=== PATIENT | male | born 1940 | race Caucasian/White ===

== ENCOUNTER 2019-05-01 05:07 | Day surgery (SDC) | payer OTHER ==
[~2019-05-01 05:07] MED LIST: BAYER CHEWABLE81 MG PO; ISOSORBIDE DINI10 MG PO; LASIX40 MG PO; LIPITOR10 MG PO; LOPRESSOR25 MG PO; MYLANTA / MAALO30 ML PO; NITROQUICK0.4 MG SL; PLAVIX75 MG PO; ZANTAC150 MG PO
[2019-05-01 06:03] LABS: BASOPHILS 0.3 % (0-2); EOSINOPHILS 2.2 % (0-7); HEMATOCRIT 31.3 % (42.0-54.0); IMMATURE GRANULOCYTES 0.9 % (0-5); LYMPHOCYTES 17.1 % (15-50); MCH 30.3 pg (26.0-34.0); MCHC 31.9 g/dL (31.0-37.0); MCV 94.8 fL (80.0-100.0); MEAN PLATELET VOLUME 9.4 fL (7.4-10.4); MONOCYTES 13.7 % (2-11); NEUTROPHILS 65.8 % (40-80); RDW 15.7 % (11.5-14.5); WBC 7.8 10x3/uL (4.8-10.8)
[2019-05-01 06:19] LABS: PLATELET COUNT 317 10x3/uL (130-400)
[2019-05-01] MEDS ORDERED: NEURONTIN 300300 MG PO (06:36)
[2019-05-01] MEDS ORDERED: TUMS X-STR300 MG PO (06:36)
[2019-05-01] MEDS ORDERED: BACLOFEN10 MG PO (06:37)
[2019-05-01] MEDS ORDERED: K-TAB10 MEQ PO (06:37)
[2019-05-01] MEDS ORDERED: GLUCOPHAGE500 MG PO (06:39)
[2019-05-01] MEDS ORDERED: ULTRAM50 MG PO (06:40)
[2019-05-01] MEDS ORDERED: ALENDRONATE SOD35 MG PO (06:41)
[2019-05-01] MEDS ORDERED: NAPROXEN SODIU220 M1 PO (06:42)
[2019-05-01 06:43] VITALS: BP 143/66; BMI 19.6
--- NOTE | 2019-05-01 09:45 | NUR ---
VSS 134/70, 60, 16, 96% ON 2L MIN/NC. [facility] OFFICERS AT BEDSIDE. DRESSING TO PENIS WITH BLOOD NOTED ON GAUZE.. ICE WATER AND FL TRAY SERVED TO PATIENT. URINAL BROUGHT TO PATIENT.
--- NOTE | 2019-05-01 10:15 | NUR ---
EATING FL DIET. [facility] OFFICERS AT BEDSIDE.
--- NOTE | 2019-05-01 10:30 | NUR ---
SPOKE WITH DR LANDAVERDE REGARDING RX FOR PATIENT. RX SENT WITH [facility] OFFICERS.
--- NOTE | 2019-05-01 10:45 | NUR ---
TOLERATED DIET. UNABLE TO VOID. CRANBERRY /APPLE JUICE TAKEN TO PATIENT. [facility] OFFICERS AT BEDSIDE.
--- NOTE | 2019-05-01 11:55 | NUR ---
UNABLE TO VOID. REPLACED SOME OF DRESSING THAT HAD FALLEN OFF OF PATIENT'S PENIS. EDEMA NOTED.
--- NOTE | 2019-05-01 12:10 | NUR ---
PATIENT VOIDED IN URINAL. IV DC'D WITH CATHETER INTACT.
--- NOTE | 2019-05-01 12:20 | NUR ---
WRITTEN AND VERBAL DC INST. SENT WITH [facility] OFFICERS INCLUDING RX.
--- NOTE | 2019-05-01 12:25 | NUR ---
DC'D TO CORRECTIONAL FACILITY VIA FACILITY VEHICLE. STABLE AT TIME OF DC.
--- NOTE | 2019-05-01 12:30 | OP ---
PATIENT NAME: DUKE MOORE MEDICAL RECORD: [id number] :40 LOCATION:[facility] ADMISSION DATE: SURGEON: ALVA LANDAVERDE MD DATE OF OPERATION: 05/01/2019 SURGEON: Alva Landaverde MD ANESTHESIA: TIVA by Celeste Gallagher. DIAGNOSES: Phimosis with recurrent balanitis, diabetes mellitus type 2. PROCEDURE: Circumcision. FINDINGS: Phimosis with balanitis. SPECIMEN: Foreskin of penis. ESTIMATED BLOOD LOSS: Minimal. CLINICAL HISTORY: This is a 78-year-old male who is a prisoner. He has diabetes mellitus type 2, which predisposes him to have balanitis and recurrent phimosis. He also has coronary artery disease and he is on Plavix. The Plavix was held for 5 days prior to the surgery. He comes today to have circumcision done. DESCRIPTION OF PROCEDURE: The patient was given IV sedation in supine position. He was prepped and draped. Because of the coronary artery disease, we did not wish to give him general anesthetic. Instead, I will be giving him a local nerve block. A dorsal penile nerve block was given at the base of the penis using 2% lidocaine without epinephrine. Also, at the mid shaft level, I also gave him another dorsal nerve block. The foreskin could not be fully retracted due to the phimosis. A dorsal slit was made and this allowed the glans penis to be fully exposed. The exposed glans penis and the mucosal foreskin were prepped with iodine. About 5 mm proximal to the schwartz of the glans penis, the mucosal foreskin was marked with a marking pen for a line of incision. This incision was made with a #15 blade. The foreskin was then brought back to its proper position. We placed a 2-0 nylon suture through the glans penis and used this for traction. This would simulate a full erection length. The cutaneous foreskin was then marked out at its appropriate location. This incision was made using a #15 blade. The intervening dartos tissue was then removed using Metzenbaum scissors. The donut of foreskin was then removed and sent to pathology. All bleeding points were coagulated using the Bovie. The skin was reapproximated using simple interrupted 4-0 Vicryl. Dressing of Xeroform and Kerlix was applied. The patient can remove the dressing in one day's time and shower in 2 days' time. He will be seen by the fdc doctor in followup. TRANSINT:[id number] Voice Confirmation ID: [id number] DOCUMENT ID: [id number] OPERATIVE REPORT [id number] DUKE MOORE ROBERT S MD at 1230 CC: [id number] DICTATION DATE: 05/01/19 0904 MECHANOTHERAPIST: 05/01/19 1149 [id number] [place] [address]
== END 2019-05-01 12:25 | disposition home or self-care (01) ==
LOC: D.OPS 05:07
PROVIDERS: Anesthesiology; ATTEND Urology
DX: N47.1 Phimosis (principal); N48.1 Balanitis; E11.9 Type 2 diabetes mellitus without complications; Z01.812 Encounter for preprocedural laboratory examination; I25.10 Atherosclerotic heart disease of native coronary artery without angina pectoris; Z79.02 Long term (current) use of antithrombotics/antiplatelets

== ENCOUNTER 2019-05-26 22:03 | Inpatient (IN) | payer MEDICAID ==
[~2019-05-26] VITALS: Ht 177.8 cm; Wt 98.2 kg
[~2019-05-26 22:03] MED LIST changes: +ALENDRONATE SOD35 MG PO; +BACLOFEN10 MG PO; +GLUCOPHAGE500 MG PO; +K-TAB10 MEQ PO; +NAPROXEN SODIU220 M1 PO; +NEURONTIN 300300 MG PO; +TUMS X-STR300 MG PO; +ULTRAM50 MG PO
[2019-05-26] MEDS ORDERED: ROCEPHIN 1 GM/D51 G1 IM (22:16)
[2019-05-26] MEDS ORDERED: PLAVIX75 MG PO (22:16)
[2019-05-26] MEDS ORDERED: ZANTAC300 MG PO (22:16)
[2019-05-26] MEDS ORDERED: NEURONTIN 300300 MG PO (22:16)
[2019-05-26] MEDS ORDERED: MIRALAX17 GM (22:17)
[2019-05-26] MEDS ORDERED: ULTRAM50 MG PO (22:19)
--- NOTE | 2019-05-26 22:35 | NUR ---
PT TRANSPORTED TO CT VIA STRETCHER WITH RN PRESENT.
[2019-05-26 23:17] LABS: BASOPHILS 0.1 % (0-2); EOSINOPHILS 0.1 % (0-7); HEMATOCRIT 24.7 % (42.0-54.0); HEMOGLOBIN 7.7 g/dL (13.5-17.5); IMMATURE GRANULOCYTES 0.6 % (0-5); LYMPHOCYTES 10.4 % (15-50); MCH 29.5 pg (26.0-34.0); MCHC 31.2 g/dL (31.0-37.0); MCV 94.6 fL (80.0-100.0); MEAN PLATELET VOLUME 8.9 fL (7.4-10.4); MONOCYTES 12.2 % (2-11); NEUTROPHILS 76.6 % (40-80); PLATELET COUNT 200 10x3/uL (130-400); RBC 2.61 10x6/uL (4.20-6.10); RDW 16.8 % (11.5-14.5); WBC 8.6 10x3/uL (4.8-10.8)
[2019-05-26 23:28] LABS: APPEARANCE CLOUDY (CLEAR); APTT 28.9 SECONDS (22.8-39.4); BILIRUBIN NEGATIVE (NEGATIVE); COLOR RED (YELLOW); GLUCOSE NEGATIVE (NEGATIVE); INR 1.36 (0.85-1.17); KETONE NEGATIVE (NEGATIVE); NITRITE NEGATIVE (NEGATIVE); PROTEIN 3+ mg/dL (NEGATIVE); PROTIME 16.2 SECONDS (11.6-15.0); SPECIFIC GRAVITY 1.015 (1.005-1.020); UROBILINOGEN NORMAL (NORMAL)
[2019-05-26 23:30] LABS: EPITHELIAL CELLS 0-5 /hpf (0-5); WHITE CELLS - URINE 0-5 /hpf (0-5)
[2019-05-26 23:31] LABS: BACTERIA MODERATE /hpf (NONE SEEN)
[2019-05-26 23:32] LABS: ALKALINE PHOSPHATASE 149 U/L (46-116); ALT (SGPT) 22 U/L (10-68); BILIRUBIN - TOTAL 0.43 mg/dL (0.2-1.3); CALC OSMOLALITY 302 mosm/kg (275-300); CARBON DIOXIDE 27.7 mmol/L (21.0-32.0); CHLORIDE - SERUM 110 mmol/L (98-107); CREATININE - SERUM 1.7 mg/dL (0.6-1.3); GLUCOSE 129 mg/dL (74-106); POTASSIUM - SERUM 3.4 mmol/L (3.5-5.1); PROTEIN - SERUM 7.9 g/dL (6.4-8.2); SODIUM 144 mmol/L (136-145); UREA NITROGEN 51 mg/dL (7-18); eGFR NON AFRICAN AMERICAN 42 mL/min (90-120)
[2019-05-26 23:34] LABS: UDS - AMPHET NEGATIVE QUAL (NEGATIVE); UDS - BARB NEGATIVE QUAL (NEGATIVE); UDS - BENZO NEGATIVE QUAL (NEGATIVE); UDS - COCAINE NEGATIVE QUAL (NEGATIVE); UDS - OPIATE NEGATIVE QUAL (NEGATIVE); UDS - PCP NEGATIVE QUAL (NEGATIVE); UDS - THC NEGATIVE QUAL (NEGATIVE)
[2019-05-26 23:51] LABS: CKMB 2.8 U/L (0.0-3.6); CREATINE KINASE 565 UL (21-232); MAGNESIUM - SERUM 2.1 mg/dL (1.8-2.4); THYROID STIMULATING HORMONE 0.67 uIU/mL (0.36-3.74)
--- NOTE | 2019-05-26 23:55 | NUR ---
PT UNABLE TO ANSWER SUICIDE SCREENING QUESTIONS DUE TO AMS WILL ATTEMPT AT A LATER TIME.
[2019-05-27] VITALS (31 sets, daily range): BP systolic 78–161; BP diastolic 33–106; Ht 177.8 cm; Wt 98.2 kg
--- NOTE | 2019-05-27 00:23 | NUR ---
PT LAYING IN BED. RESPIRATIONS ARE EVEN AND UNLABORED. NO DISTRESS NOTED. VSS AND BEING MONITORED BY PULSE OX, CHESTNUT TANNER AND BP. CO X2 AT BEDSIDE.
--- NOTE | 2019-05-27 00:40 | NUR ---
ADVISED EDP STOOL GUAIAC POSITIVE
--- NOTE | 2019-05-27 00:40 | NUR ---
OCCULT STOOL POSITIVE.
--- NOTE | 2019-05-27 02:00 | NUR ---
RECEIVED PT FROM ER VIA [facility] TO ROOM 2302. PT ATTACHED TO MONITORS, ALL ARE WORKING CORRECTLY. ADMISSION ASSESSMENT, HX, AND OTHER INFORMATION COMPLETED. NO SIGNS OF ACUTE DISTRESS NOTED AT THIS TIME. WILL CONTINUE TO MONITOR.
[2019-05-27 04:37] LABS: BASOPHILS 0.1 % (0-2); EOSINOPHILS 0.1 % (0-7); HEMOGLOBIN 9.1 g/dL (13.5-17.5); IMMATURE GRANULOCYTES 0.7 % (0-5); LYMPHOCYTES 9.1 % (15-50); MCH 29.7 pg (26.0-34.0); MCHC 31.4 g/dL (31.0-37.0); MCV 94.8 fL (80.0-100.0); MEAN PLATELET VOLUME 9.6 fL (7.4-10.4); MONOCYTES 10.4 % (2-11); NEUTROPHILS 79.6 % (40-80); PLATELET COUNT 214 10x3/uL (130-400); RBC 3.06 10x6/uL (4.20-6.10); RDW 16.7 % (11.5-14.5); WBC 8.9 10x3/uL (4.8-10.8)
--- NOTE | 2019-05-27 05:00 | NUR ---
PT IS RESTING IN BED. NO SIGNS OF ACUTE DISTRESS NOTED AT THIS TIME. WILL CONTINUE TO MONITOR.
[2019-05-27 05:20] LABS: ALBUMIN 2.1 g/dL (3.4-5.0); ALKALINE PHOSPHATASE 155 U/L (46-116); ALT (SGPT) 24 U/L (10-68); BILIRUBIN - TOTAL 0.53 mg/dL (0.2-1.3); CALC OSMOLALITY 303 mosm/kg (275-300); CALCIUM 8.9 mg/dL (8.5-10.1); CARBON DIOXIDE 25.9 mmol/L (21.0-32.0); CHLORIDE - SERUM 112 mmol/L (98-107); CKMB 3.1 U/L (0.0-3.6); CREATINE KINASE 608 UL (21-232); CREATININE - SERUM 1.6 mg/dL (0.6-1.3); GLUCOSE 118 mg/dL (74-106); PHOSPHOROUS 2.8 mg/dL (2.5-4.9); PROTEIN - SERUM 8.2 g/dL (6.4-8.2); SODIUM 146 mmol/L (136-145); THYROID STIMULATING HORMONE 0.73 uIU/mL (0.36-3.74); UREA NITROGEN 46 mg/dL (7-18); eGFR NON AFRICAN AMERICAN 45 mL/min (90-120)
[2019-05-27 05:21] LABS: TROPONIN-I 0.195 ng/mL (0.000-0.060)
--- NOTE | 2019-05-27 07:00 | NUR ---
IN PT'S ROOM, PT IS PULLING AT IV LINES AND SANTOS. ACCORDING TO REPORT RECEIVED PT HAS PULLED OUT 3 SANTOS'S THIS WEEK. PT HAS BLOODY URINE AT THIS TIME, TO AVOID FURTHER TRAMUA SOFT RESTRIANTS PLACED. NO SIGNS OF ACUTE DISTRESS NOTED AT THIS TIME. GUARD AT BEDSIDE. WILL CONTINUE TO MONITOR.
[2019-05-27 08:55] LABS: % SATURATION 21 % (15-55); IRON 39 ug/dl (35-150); TOTAL IRON BIND CAPACITY 183 ug/dl (260-445); UNSAT IRON BIND CAPACITY 144 ug/dl (150-375)
[2019-05-27 09:10] LABS: FERRITIN 260 ng/mL (3-244)
--- NOTE | 2019-05-27 09:50 | NUR ---
0800 REPORT RECIEVED AND CARE ASSUMED OF PATIENT... PT IS CONFUSED AND NOT FOLLOWING COMMANDS.. DARK SHANIA URINE IN SANTOS CATH.. SOFT WRIST RESTRAINTS ON FOR PULLING AND SELF REMOVAL OF LINES AND DRESSING.. ADC GUARD AT THE BEDSIDE.. THERE IS BILATERAL PIV .. THE RIGHT WRIST IS RED AND NOT INFUSING.. FLUID TURNED OFF AT THIS TIME.. 0900 DR MCKEON IN TO SEE PT.. SHE STATED AT THIS TIME THAT PT HAS METS TO THE BRAIN .. SHE SUGGESTED HALDOL FOR HIS MENTAL STATE AND HOSPICE.. NO ORDER RECIEVED AT THIS TIME TO REFLECT HER VERBAGE TO NURSE.. 1000 WIHTOUT CHANGES..
[2019-05-27 13:34] LABS: CKMB 3.6 U/L (0.0-3.6); CREATINE KINASE 652 UL (21-232)
[2019-05-27 13:36] LABS: TROPONIN-I 0.167 ng/mL (0.000-0.060)
[2019-05-27 14:14] LABS: HEMATOCRIT 23.2 % (42.0-54.0)
[2019-05-27 14:20] LABS: HEMOGLOBIN 7.3 g/dL (13.5-17.5)
--- NOTE | 2019-05-27 14:32 | NUR ---
1130 DR ADEN IN TO SEE PT.. UPDATE IS GIVEN.. REQUEST MADE FOR PICC LINE OR MIDLINE PIV 1245JANET WILD HERE MIDLINE PLACED IN LEFT UPPER ARM 1300 IV FLUIDS RESUMED AND KCL INFUSION RESUMED.. 1400 MRI DEPT CALLED INTO UNIT QUESTIONS REGARDING MRI POSED TO DR ADEN 1415 CXR AND KUB ORDERED PER DR ADEN 1445 KUB AND CXR DONE CASE AND RISK MANMAGMENT IN SPEAKING WITH DR ADEN RE MRI AND NEED FOR IT.. 1450 DR ADEN REQUESTING TO SPEAK WITH DR LINDA DEY FOR HIM
--- NOTE | 2019-05-27 14:40 | MORECARE ---
CASE MANAGEMENT DISCHARGE SUMMARY PATIENT: DUKE MOORE UNIT: [id number] ADM DATE: 05/27/19 AGE: 78 : 40 SEX: M ROOM/BED: D.2302 AUTHOR: RHYS TANNER PHYSICIAN: REFERRING PHYSICIAN: PEPPER ADEN MD DATE OF SERVICE: 05/27/19 Discharge Plan Patient Name: DUKE MOORE Facility: [facility]:[place] : 1940 Planned Disposition: Court\Law Enforcement Anticipated Discharge Date: Discharge Date: Expected LOS: Initial Reviewer: [id number] Initial Review Date: 05/27/2019 Generated: 05/27/19 3:40 pm Patient Name: DUKE MOORE Page [id number] at 1440 All edits/amendments must be made on the electronic document DICTATION DATE: 05/27/19 1440 SPRINKLING SYSTEM INSTALLER: ZOILA 05/27/19 1440 RPT#: [id number] DC DATE: STATUS: ADM IN [facility] [address] [place] [address] END OF REPORT
--- NOTE | 2019-05-27 14:48 | MORECARE ---
CASE MANAGEMENT DISCHARGE SUMMARY PATIENT: DUKE MOORE UNIT: [id number] ADM DATE: 05/27/19 AGE: 78 : 40 SEX: M ROOM/BED: D.2302 AUTHOR: RHYS TANNER PHYSICIAN: REFERRING PHYSICIAN: PEPPER ADEN MD DATE OF SERVICE: 05/27/19 Discharge Plan Patient Name: DUKE MOORE Facility: [facility]:[place] : 1940 Planned Disposition: Court\Law Enforcement Anticipated Discharge Date: Discharge Date: Expected LOS: Initial Reviewer: [email or web address] Initial Review Date: 05/27/2019 Generated: 05/27/19 3:47 pm Comments DCP- Discharge Planning Updated by [email or web address]: Daylin Blackman on 05/27/19 1:[address] PATIENT RESIDES AT [facility] IN [place] AND WILL RETURN THERE UPON DISCHARGE. HE CURRENTLY HAS A GUARD AT BEDSIDE. CM WILL CONTINUE TO FOLLOW AND ASSIST NEEDED WITH D/C PLANNING. Last DP export: 05/27/19 1:40 pm Patient Name: DUKE MOORE Page [phone] at 1448 All edits/amendments must be made on the electronic document DICTATION DATE: 05/27/191446 SALESPERSON PIANOS AND ORGANS: ZOILA 05/27/191446 RPT#: [id number] DC DATE: STATUS: ADM IN [address] [place] [place] [address] END OF REPORT
--- NOTE | 2019-05-27 18:00 | NUR ---
1515 MRI ON HOLD AT THIS TIME..PT IS WITHOUT CHANGES 1630 REMAINS IN SOFT RESTRAINTS CONFUSED AND PULLING AT LINES AND TUBES 1800 NO CHNAGES IN PT STATUS..
--- NOTE | 2019-05-27 19:00 | NUR ---
SHIFT ASSESSMENT COMPLETE. VS STABLE AND AFEBRILE. NO VISUAL CUES OF DISTRESS NOTED. WILL CONTINUE TO MONITOR.
--- NOTE | 2019-05-27 21:00 | NUR ---
VS STABLE. NO VISUAL CUES OF DISTRESS NOTED. WILL MONITOR.
--- NOTE | 2019-05-27 23:00 | NUR ---
RESPIRATIONS EVEN AND UNLABORED. NO VISUAL CUES OF DISTRESS NOTED. WILL MONITOR.
[2019-05-28] VITALS (13 sets, daily range): BP systolic 121–153; BP diastolic 61–85
--- NOTE | 2019-05-28 01:00 | NUR ---
VS STABLE AND AFEBRILE. NO VISUAL CUES OF DISTRESS NOTED. WILL CONTINUE TO MONITOR.
--- NOTE | 2019-05-28 03:00 | NUR ---
VS STABLE AND AFEBRILE. NO VISUAL CUES OF DISTRESS NOTED. WILL CONTINUE TO MONITOR.
[2019-05-28 04:49] LABS: BASOPHILS 0 % (0-2); EOSINOPHILS 0.3 % (0-7); HEMATOCRIT 26.3 % (42.0-54.0); HEMOGLOBIN 8.2 g/dL (13.5-17.5); LYMPHOCYTES 11.7 % (15-50); MCH 29.5 pg (26.0-34.0); MCHC 31.2 g/dL (31.0-37.0); MCV 94.6 fL (80.0-100.0); MEAN PLATELET VOLUME 9.2 fL (7.4-10.4); MONOCYTES 13.2 % (2-11); NEUTROPHILS 73.8 % (40-80); PLATELET COUNT 174 10x3/uL (130-400); RBC 2.78 10x6/uL (4.20-6.10); RDW 17.4 % (11.5-14.5)
[2019-05-28 05:00] LABS: WBC 5.9 10x3/uL (4.8-10.8)
--- NOTE | 2019-05-28 05:00 | NUR ---
VS STABLE AND AFEBRILE. NO VISUAL CUES OF DISTRESS NOTED. WILL MONITOR.
[2019-05-28 05:11] LABS: ANION GAP 10.4 mmol/L (8-16); BILIRUBIN - TOTAL 0.47 mg/dL (0.2-1.3); CALCIUM 8.8 mg/dL (8.5-10.1); CARBON DIOXIDE 24.9 mmol/L (21.0-32.0); MAGNESIUM - SERUM 1.6 mg/dL (1.8-2.4); PHOSPHOROUS 2.3 mg/dL (2.5-4.9); POTASSIUM - SERUM 3.3 mmol/L (3.5-5.1); PROTEIN - SERUM 7.8 g/dL (6.4-8.2)
[2019-05-28 05:43] LABS: CREATININE - SERUM 1.1 mg/dL (0.6-1.3)
--- NOTE | 2019-05-28 07:00 | NUR ---
PT CONFUSED. 128-AFIB. EKG ORDERED. NO S/S OF ACUTE DISTRESS. GUARD AT BEDSIDE.CL IN PLACE.
--- NOTE | 2019-05-28 07:00 | NUR ---
RESTRAINTS DC'D AT THIS TIME,
--- NOTE | 2019-05-28 09:00 | NUR ---
PT TELE- 140 AFIB. EKG DONE AND VERIFIED AFIB RVR-140.CALLED DR ADEN WHO GAVE TO FOR AMIODARONE DRIP AND LOPRESSOR IV RESTING IN BED REMOVED RESTRAINTS. PT DOIND WELL. AAO TO SELF ONLY. GUARD AT BEDSIDE.NO S/S OF ACUTE DISTRESS. CL IN PLACE.
--- NOTE | 2019-05-28 11:00 | NUR ---
PT DRANK X2 SMALL CUPS OF WATER AND DRANK 1 CARTON OF APPLE JUICE. MADE PT SOME CHICKEN NOODLE SOUP. PT DID WELL. NO S/S OF ACUTE DISTRESS. CL IN PLACE.
--- NOTE | 2019-05-28 15:00 | NUR ---
CALL REPORT TO DANK GRUBBS. DC PIV WITH TIP INTACT. COVERED K3.3 WITH 40MEQ PO AND MAG 1.6 WITH 400MG PER ELECTROLYTE PROTOCOL. ALL BELONGINGS SENT WITH PT. NO S/S OF ACUTE DISTRESS. CL IN PLACE.
--- NOTE | 2019-05-28 16:00 | NUR ---
RECIVED PT TO 2120 FROM ICU
--- NOTE | 2019-05-28 19:45 | NUR ---
PT RESTING SUPINE IN BED. GAURD AT BEDSIDE. NO S/S OF DISTRESS. DENIES ANY NEEDS AT THIS TIME. WILL CONTINUE TO MONITOR.
--- NOTE | 2019-05-28 21:00 | NUR ---
PT PULLED IV LINE OUT OF ARM. CONTACTED [facility] FOR MITTEN RESTRAINTS. WILL CONTINUE TO MONITOR.
--- NOTE | 2019-05-28 21:30 | NUR ---
BEFORE BEING ABLE TO APPLY MITTEN RESTRAINTS, PT PULLED OUT MIDLINE. CONTACTED [facility] FOR TRANSFER BACK TO ICU FOR RESTRAINT USE. WILL CONTINUE TO MONITOR.
--- NOTE | 2019-05-28 21:47 | NUR ---
NOTIFIED PHIL OF ORDERS TO TRANSFER TO ICU.
[2019-05-29] VITALS (22 sets, daily range): BP systolic 107–167; BP diastolic 51–96
[2019-05-29 06:00] LABS: ALBUMIN 1.8 g/dL (3.4-5.0); ANION GAP 7.5 mmol/L (8-16); BILIRUBIN - TOTAL 0.31 mg/dL (0.2-1.3); CALCIUM 8.4 mg/dL (8.5-10.1); CARBON DIOXIDE 25.6 mmol/L (21.0-32.0); CREATININE - SERUM 1.1 mg/dL (0.6-1.3); MAGNESIUM - SERUM 1.5 mg/dL (1.8-2.4); PHOSPHOROUS 2.5 mg/dL (2.5-4.9); POTASSIUM - SERUM 3.1 mmol/L (3.5-5.1); PROTEIN - SERUM 7.1 g/dL (6.4-8.2)
[2019-05-29 06:29] LABS: HEMATOCRIT 25.7 % (42.0-54.0); MCH 29.6 pg (26.0-34.0); MCHC 31.1 g/dL (31.0-37.0); MCV 95.2 fL (80.0-100.0); MEAN PLATELET VOLUME 9.8 fL (7.4-10.4); PLATELET COUNT 156 10x3/uL (130-400); WBC 4.3 10x3/uL (4.8-10.8)
--- NOTE | 2019-05-29 07:00 | NUR ---
REPORT RECEVIED FROM THE OFF GOING RN. SEE ASSESSMENT IN THE PTS FLOW SHEET. VSS AT THIS TIME. GAURD AT THE PTS BEDSIDE. CALL LIGHT IN REACH. WILL CONT POC.
[2019-05-29 08:43] LABS: LYMPHOCYTES 21 % (15-50); MONOCYTES 15 % (2-11); NEUTROPHILS 63 % (40-80); ROULEAUX OCC
[2019-05-29 08:46] LABS: PLATELET ESTIMATE NORMAL
--- NOTE | 2019-05-29 13:17 | NUR ---
PT HAD A BM. FULL CHD BATH GIVEN AND BED LINENS CHANGED.
--- NOTE | 2019-05-29 14:00 | NUR ---
RESTRAINTS REMOVED FROM THE PT. PT CONFUSED BUT NOT PULLING AT LINES.
--- NOTE | 2019-05-29 16:43 | NUR ---
DR ADEN PAGED RT AFIB 120-140'S AWAITING RESPONSE.
--- NOTE | 2019-05-29 20:00 | NUR ---
RECEIVED REPORT AND ASSUMED CARE OF PT. PT ALERT ORIENTED EXCEPT TO SITUATION. OBEYS COMMANDS. OXYGEN AT 2L/NC. 2 PERSON ASSIST SAT PT UP ON SIDE OF BED FOR A FEW MINUTES. GAVE SCHEDULED ZOFRAN. PT TOLERATED SMALL SIPS OF APPLEJUICE WITH NO VOMITING SO FAR. FSBS 114 - NO INSULIN PER SS. SANTOS CATH WITH BLOODY DRAINAGE. NO OTHER NEEDS. GUARD AT BEDSIDE. WILL CONTINUE TO MONITOR.
[2019-05-30] VITALS (18 sets, daily range): BP systolic 112–156; BP diastolic 49–80
--- NOTE | 2019-05-30 00:50 | NUR ---
PT C/O PAIN AND URGENCY. LITTLE TO NO OUTPUT IN CATHETER BAG. TRIED FLUSHING CATHETER. LEAKING AROUND CATHETER ONTO BED. ADDED 2 MLS TO BULB. STILL NO DRAINAGE TO BAG. BLADDER SCANNED PT FOR RESULT OF 480 MLS. REMOVED CATHETER CATHETER THAT HAD BEEN PLACED PREVIOUS TO ADMISSION. REPLACED WITH 16 WELSH SANTOS CATHETER, NO DIFFICULTY. IMMEDIATE FLOW OF TEA COLOR URINE AND CLOTS. PT SAID HE IS "FEELING RELIEVED." SENT [facility]A TO LAB. NO OTHER NEEDS AT THIS TIME. WILL REASSESS AND CONTINUE TO MONITOR.
[2019-05-30 01:58] LABS: APPEARANCE TURBID (CLEAR); BACTERIA MODERATE /hpf (NONE SEEN); BILIRUBIN NEGATIVE (NEGATIVE); COLOR AMBER (YELLOW); EPITHELIAL CELLS 0-5 /hpf (0-5); GLUCOSE NEGATIVE (NEGATIVE); KETONE LARGE mg/dL (NEGATIVE); NITRITE NEGATIVE (NEGATIVE); PROTEIN 2+ mg/dL (NEGATIVE); RED CELLS - URINE >50 /hpf (0-5); UROBILINOGEN NORMAL (NORMAL); WHITE CELLS - URINE 25-50 /hpf (0-5)
[2019-05-30 03:50] LABS: BASOPHILS 0.2 % (0-2); EOSINOPHILS 1.6 % (0-7); HEMATOCRIT 26.3 % (42.0-54.0); HEMOGLOBIN 8.2 g/dL (13.5-17.5); IMMATURE GRANULOCYTES 1.4 % (0-5); LYMPHOCYTES 12.2 % (15-50); MCH 29.6 pg (26.0-34.0); MCHC 31.2 g/dL (31.0-37.0); MCV 94.9 fL (80.0-100.0); MEAN PLATELET VOLUME 9.6 fL (7.4-10.4); MONOCYTES 11.8 % (2-11); NEUTROPHILS 72.8 % (40-80); PLATELET COUNT 145 10x3/uL (130-400); RBC 2.77 10x6/uL (4.20-6.10); WBC 4.9 10x3/uL (4.8-10.8)
[2019-05-30 03:57] LABS: APTT 21.6 SECONDS (22.8-39.4); INR 1.27 (0.85-1.17); PROTIME 15.4 SECONDS (11.6-15.0)
[2019-05-30 04:02] LABS: ALBUMIN 1.7 g/dL (3.4-5.0); ALKALINE PHOSPHATASE 128 U/L (46-116); ALT (SGPT) 23 U/L (10-68); BILIRUBIN - TOTAL 0.27 mg/dL (0.2-1.3); CALC OSMOLALITY 292 mosm/kg (275-300); CALCIUM 8.3 mg/dL (8.5-10.1); CARBON DIOXIDE 26.2 mmol/L (21.0-32.0); CHLORIDE - SERUM 114 mmol/L (98-107); GLUCOSE 125 mg/dL (74-106); MAGNESIUM - SERUM 1.4 mg/dL (1.8-2.4); PHOSPHOROUS 2.4 mg/dL (2.5-4.9); POTASSIUM - SERUM 3.3 mmol/L (3.5-5.1); PROTEIN - SERUM 6.9 g/dL (6.4-8.2); SODIUM 146 mmol/L (136-145); UREA NITROGEN 16 mg/dL (7-18); eGFR NON AFRICAN AMERICAN 77 mL/min (90-120)
--- NOTE | 2019-05-30 07:56 | NUR ---
Nutrition follow-up: Diet: Regular Puree PO intake has been poor due to nausea, some confusion Labs reviewed Wt: 192# +BM RDN following.
--- NOTE | 2019-05-30 09:53 | NUR ---
IV INFILTRATED TO LUE. 20G SITED TO RUE X 1 STICK. PT C/O GENERALIZED PAIN. PO PAIN MED GIVEN. GUARD AT BS.
--- NOTE | 2019-05-30 10:35 | NUR ---
PT C/O BLADDER PAIN. FLUSHED SANTOS CATH WITH STERAL WATER. LG BLOOD CLOTS ASPIRATED OUT. PT VERB R/O BLADDER PAIN. FC NOW PATIENT.
--- NOTE | 2019-05-30 13:03 | NUR ---
DR ADEN HERE ON ROUNDS. DR MCKEON SPOKE TO IR. FELECIA SIGNED AND PT NPO FOR PROCEDURE.
--- NOTE | 2019-05-30 13:51 | NUR ---
PT BACK FROM I.R. DR MCKEON CALLED AND ORDER FOR BONE SCAN PLACED. DR ADEN NOTIFIED RE: BONE BX NOT DONE IN IR.
--- NOTE | 2019-05-30 17:39 | NUR ---
INC OF STOOL. BATH AND LINENS CHANGED. FC CARE COMPLETE.
--- NOTE | 2019-05-30 19:00 | NUR ---
PATIENT IN BED. OFFICER AT BEDSIDE. PATIENT ASKING FOR PERSONAL PHONE. EXPLAINED TO PATIENT WE COULD NOT GIVE HIM A PHONE AT THIS TIME.
--- NOTE | 2019-05-30 20:00 | NUR ---
PATIENT ASKED FOR PHONE. EXPLAINED TO PATIENT HE COULD NOT HAVE A PHONE AT THIS TIME. OFFICER AT BEDSIDE.
--- NOTE | 2019-05-30 21:00 | NUR ---
PATIENT LAYING IN BED. NO COMPLAINTS AT THIS TIME. OFFICER AT BEDSIDE.
--- NOTE | 2019-05-30 22:00 | NUR ---
PATIENT LAYING IN BED. NO COMPLAINTS AT THIS TIME. OFFICER AT BEDSIDE.
--- NOTE | 2019-05-30 23:00 | NUR ---
PATIENT LAYING IN BED. NO COMPLAINTS AT THIS TIME. OFFICER AT BEDSIDE.
[2019-05-31] VITALS (15 sets, daily range): BP systolic 131–154; BP diastolic 69–95
--- NOTE | 2019-05-31 | NUR ---
PATIENT LAYING IN BED. EYES CLOSED, CHEST RISING AND FALLING. OFFICER AT BEDSIDE.
--- NOTE | 2019-05-31 01:00 | NUR ---
PATIENT LAYING IN BED, EYES CLOSED, CHEST RISING AND FALLING. OFFICER AT BEDSIDE.
--- NOTE | 2019-05-31 01:50 | NUR ---
PT RESTING IN BED WITH EYES CLOSED, VSS, GUARD AT BEDSIDE.
--- NOTE | 2019-05-31 02:00 | NUR ---
PATIENT LAYING IN BED, EYES CLOSED, CHEST RISING AND FALLING. OFFICER AT BEDSIDE.
--- NOTE | 2019-05-31 03:00 | NUR ---
PATIENT LAYING IN BED. NO COMPLAINTS AT THIS TIME. OFFICER AT BEDSIDE.
[2019-05-31 03:42] LABS: BASOPHILS 0.2 % (0-2); EOSINOPHILS 1.9 % (0-7); HEMOGLOBIN 7.9 g/dL (13.5-17.5); IMMATURE GRANULOCYTES 1.9 % (0-5); LYMPHOCYTES 12.5 % (15-50); MCH 29.5 pg (26.0-34.0); MCHC 31.6 g/dL (31.0-37.0); MCV 93.3 fL (80.0-100.0); MEAN PLATELET VOLUME 9.4 fL (7.4-10.4); MONOCYTES 12.5 % (2-11); PLATELET COUNT 143 10x3/uL (130-400); RBC 2.68 10x6/uL (4.20-6.10); RDW 17.6 % (11.5-14.5); WBC 5.2 10x3/uL (4.8-10.8)
[2019-05-31 03:58] LABS: ALBUMIN 1.7 g/dL (3.4-5.0); ALKALINE PHOSPHATASE 136 U/L (46-116); ALT (SGPT) 21 U/L (10-68); BILIRUBIN - TOTAL 0.34 mg/dL (0.2-1.3); CALC OSMOLALITY 287 mosm/kg (275-300); CALCIUM 8.3 mg/dL (8.5-10.1); CARBON DIOXIDE 23.5 mmol/L (21.0-32.0); CHLORIDE - SERUM 114 mmol/L (98-107); GLUCOSE 125 mg/dL (74-106); MAGNESIUM - SERUM 1.2 mg/dL (1.8-2.4); PHOSPHOROUS 2.8 mg/dL (2.5-4.9); POTASSIUM - SERUM 3.6 mmol/L (3.5-5.1); PROTEIN - SERUM 7.1 g/dL (6.4-8.2); SODIUM 144 mmol/L (136-145); UREA NITROGEN 13 mg/dL (7-18); eGFR NON AFRICAN AMERICAN 77 mL/min (90-120)
--- NOTE | 2019-05-31 04:00 | NUR ---
PATIENT LAYING IN BED. NO COMPLAINTS AT THIS TIME. OFFICER AT BEDSIDE.
--- NOTE | 2019-05-31 04:28 | NUR ---
MAGNESIUM LAB 1.2. MAG OX 400MG GIVEN. PATIENT WILL NEED 3 MORE DOSES EVERY FOUR HOURS. WILL PASS ON IN REPORT TO DAY SHIFT.
--- NOTE | 2019-05-31 05:00 | NUR ---
PATIENT LAYING IN BED. NO COMPLAINTS AT THIS TIME.
--- NOTE | 2019-05-31 06:00 | NUR ---
PATIENT LAYING IN BED. NO COMPLAINTS AT THIS TIME. OFFICER AT BEDSIDE.
--- NOTE | 2019-05-31 07:14 | NUR ---
PATIENT LAYING IN BED. RESTRAINTS ON. NO COMPLAINTS AT THIS TIME. OFFICER AT BEDSIDE.
--- NOTE | 2019-05-31 09:10 | NUR ---
DR MCKEON HERE.
--- NOTE | 2019-05-31 14:40 | NUR ---
PT TO NM FOR BONE SCAN.
--- NOTE | 2019-05-31 17:09 | NUR ---
MEAL TRAY SERVED AND PT FEEDS SELF WITH MEAL TRAY SET UP.
--- NOTE | 2019-05-31 19:50 | NUR ---
PT INCONTINENT OF LIQUID LIGHT BROWN BM, PARTIAL LINEN CHANGE DONE, PERICARE AND SANTOS CARE PROVIDED, POSITIONED UP IN BED SUPPORTED WITH PILLOWS, GUARD AT BEDSIDE.
--- NOTE | 2019-05-31 23:15 | NUR ---
REASSESSMENT PER FLOWSHEET, NO ACUTE CHANGES NOTED AT THIS TIME, VSS.
--- NOTE | 2019-05-31 23:28 | NUR ---
PRN PO PAIN MED ADMINISTERED PER PT REQUEST/MD ORDER, GUARD AT BEDSIDE.
[2019-06-01] VITALS (18 sets, daily range): BP systolic 120–147; BP diastolic 65–87
--- NOTE | 2019-06-01 01:41 | NUR ---
PT RESTING IN BED WITH EYES CLOSED, VSS, GUARD AT BEDSIDE, CONT POC.
[2019-06-01 03:55] LABS: BASOPHILS 0.2 % (0-2); EOSINOPHILS 1.8 % (0-7); HEMATOCRIT 25.5 % (42.0-54.0); IMMATURE GRANULOCYTES 1.5 % (0-5); LYMPHOCYTES 7.6 % (15-50); MCH 29.1 pg (26.0-34.0); MCHC 31.4 g/dL (31.0-37.0); MCV 92.7 fL (80.0-100.0); MEAN PLATELET VOLUME 9.7 fL (7.4-10.4); MONOCYTES 17.1 % (2-11); NEUTROPHILS 71.8 % (40-80); PLATELET COUNT 161 10x3/uL (130-400); RBC 2.75 10x6/uL (4.20-6.10); RDW 17.9 % (11.5-14.5)
[2019-06-01 04:07] LABS: ALBUMIN 1.6 g/dL (3.4-5.0); ALKALINE PHOSPHATASE 137 U/L (46-116); ALT (SGPT) 19 U/L (10-68); BILIRUBIN - TOTAL 0.41 mg/dL (0.2-1.3); CALC OSMOLALITY 284 mosm/kg (275-300); CALCIUM 8.5 mg/dL (8.5-10.1); CARBON DIOXIDE 25.5 mmol/L (21.0-32.0); CHLORIDE - SERUM 114 mmol/L (98-107); CREATININE - SERUM 0.8 mg/dL (0.6-1.3); GLUCOSE 87 mg/dL (74-106); MAGNESIUM - SERUM 1.4 mg/dL (1.8-2.4); PHOSPHOROUS 2.7 mg/dL (2.5-4.9); POTASSIUM - SERUM 3.5 mmol/L (3.5-5.1); SODIUM 144 mmol/L (136-145); UREA NITROGEN 11 mg/dL (7-18); eGFR NON AFRICAN AMERICAN > 90 mL/min (90-120)
--- NOTE | 2019-06-01 05:16 | NUR ---
AM LABS REVIEWED, FIRST OF 2 TOTAL DOSES OF MAG 400MG ADMINISTERED PER MD ORDER/ELECTROLYTE PROTOCOL.
--- NOTE | 2019-06-01 07:45 | NUR ---
REPOSITIONED IN BED, GUARD AT BS. PT RESTRAINED BUE TO PREVENT HIM FROM PULLING AT LINES. RESTRAINTS OFF FOR ASSESSMENT. PT ATTEMPTING TO PULL FC OUT AND PULLS NC OFF.
--- NOTE | 2019-06-01 15:17 | NUR ---
INC OF STOOL. BATHED AND LINENS CHANGED. IV OUT. RESITE 20G TO RT WRIST.
--- NOTE | 2019-06-01 20:00 | NUR ---
RESUMED CARE OF PATIENT. INITIAL ASSESSMENT COMPLETE. PT ALERT CONFUSED. CHRISTINE FOLLOWS COMMANDS EQUAL STRENGTH NOTED. [facility] GUARD AT BEDSIDE AT ALL TIMES, SO RESTRAINTS REMOVED AT THIS TIME SO PT CAN DRINK GOLYTELY BOWEL PREP, HE HAS HAD VERY LITTLE IF ANY THERE WAS A CUP ON BEDSIDE TABLE FULL OF GOLYTELY AND THE 4000 CC CONTAINER APPEARS FULL. RELEASED RESTRAINTS AND INFORMED PT NEEDED TO GET THE FLUID DOWN FOR THE PROCEDURE IN AM AND THAT HE NEEDED TO DRINK BEFORE MIDNIGHT SINCE THE PROCEDURE PREP CALLS FOR NPO AFTER MIDNIGHT PT TO DRINK MUCH POSSIBLE. PATIENT DRINKS APPROXIMATELY 300 CC RN ASSESSESS AND ORGANIZES ROOM. WILL CONTINUE TO PUSH THE FLUID. CM ON READING SR WITH OCCASIONAL PAC'S ALARMS ON AND AUDIBLE. ABD SOFT NONTENDER ACTIVE BS X4. SANTOS PATENT DRAINING YELLOW URINE TO BSD. SKIN W/D PPP. CPOC
--- NOTE | 2019-06-01 21:10 | NUR ---
ANSWERED PTS CALL LIGHT PT HAS HAD INCONTINENT BM LARGE LIQUID BROWN STOOL COMPLETE BATH AND LINEN CHANGE INFORMED PT THAT THE DRINK IS GOING TO MAKE HIM HAVE SEVERAL BM'S TO CLEAN OUT FOR PROCEDURE. AFTER GETTING PT CLEANED UP AND REPOSITIONED IN BED AGAIN GIVEN MORE PREP TO DRINK PT STATING "I CANT DRINK ANYMORE ITS TOO MUCH". INFORMED THAT WAS GOOD FOR NOW I WOULD BE BACK LATER TO GIVE MORE
--- NOTE | 2019-06-01 23:00 | NUR ---
REASSESSMENT MADE STILL PUSHING THE GOLYTELY PT HAVING TROUBLE DRINING FEELING NAUSEATED. CPOC SEE ASSESSMENT
[2019-06-02] VITALS (25 sets, daily range): BP systolic 107–143; BP diastolic 55–83
--- NOTE | 2019-06-02 01:00 | NUR ---
PT RESTING QUIETLY WITH EYES CLOSED NO DISTRESS NOTED VSS CPOC
--- NOTE | 2019-06-02 03:00 | NUR ---
REASSESSMENT MADE REPOSITONED FOR COMFORT PT STATES EPIDURAL STILL MANAGING HER PAIN.
--- NOTE | 2019-06-02 06:30 | NUR ---
PT HAD BM LINENS CHANGED AFTER CLEANING. REPOSITIONED FOR COMFORT. VSS PT DENIES PAIN OR DISCOMFORT.
--- NOTE | 2019-06-02 07:00 | NUR ---
SHIFT ASSESSMENT COMPLETED. PT CARE ASSUMED. MONITORS ON AND WORKING, VITALS STABLE, PT AWAKE WITH PERIODS OF CONFUSION. GUARD AT BEDSIDE. CALL LIGHT WITHIN REACH, SEE FLOW SHEET FOR FURTHER DETAILS. WILL CONTINUE TO OBSERVE.
--- NOTE | 2019-06-02 08:50 | NUR ---
Nutrition follow-up: Pt now NPO for colonoscopy PO intake of regular diet has been ~50% average of last 6 meals +BM, loose Wt: 208# -> 6# loss Pt confused per physician RDN following.
--- NOTE | 2019-06-02 09:00 | NUR ---
PT REPOSITIONED AND CLEANED FROM BM. PT CONFUSED BUT FOLLOWS COMMANDS. MONITORS ON AND WORKING, VITALS STABLE, GUARD AT BEDSIDE, CALL LIGHT WITHIN REACH, WILL CONTINUE TO OBSERVE.
--- NOTE | 2019-06-02 11:00 | NUR ---
NO CHANGES, MONITORS ON AND WORKING, SEE FLOW SHEET FOR FURTHER DETIALS. WILL CONTINUE TO OBSERVE.
--- NOTE | 2019-06-02 19:00 | NUR ---
REPORT RECEIVED, CARE ASSUMED. PT IS LAYING IN BED AT THIS TIME WITH EYES OPEN. PT WAS INCONTINENT OF A SMALL BM. BEDPADS CHANGED. PT REPOSITIONED FOR COMFORT. NO FURTHER NEEDS VOICED. INITIAL ASSESSMENT COMPLETED, SEE FLOWSHEET FOR DETAILS. PT HAS GUARD AT BEDSIDE. NO SIGNS OF ACUTE DISTRESS. WILL CONTINUE TO MONITOR.
--- NOTE | 2019-06-02 21:00 | NUR ---
PT IS LAYING IN BED WITH EYES OPEN AT THIS TIME. PT REQUESTED WARM BLANKETS AND SOMETHING TO EAT, NEEDS PROVIDED. NO SIGNS OF ACUTE DISTRESS. WILL CONTINUE TO MONITOR.
--- NOTE | 2019-06-02 23:00 | NUR ---
REASSESSMENT COMPLETED, SEE FLOWSHEET FOR DETAILS. PT IS LAYING IN BED WITH EYES CLOSED AT THIS TIME. NO NEEDS VOICED. NO SIGNS OF ACUTE DISTRESS. WILL CONTINUE TO MONITOR CLOSELY.
[2019-06-03] VITALS (24 sets, daily range): BP systolic 105–130; BP diastolic 53–67
--- NOTE | 2019-06-03 01:00 | NUR ---
PT IS IN BED WITH EYES CLOSED. GUARD AT BEDSIDE. NO SIGNS OF ACUTE DISTRESS. WILL CONTINUE TO MONITOR.
--- NOTE | 2019-06-03 03:00 | NUR ---
REASSESSMENT COMPLETED, SEE FLOWSHEET FOR DETAILS. PT IS IN BED WITH EYES OPEN. PT COMPLAINS OF PAIN, I EXPLAINED THAT IT IS NOT YET TIME FOR HIS PAIN PILL BUT THAT IT WILL BE SHORTLY AND I WILL BRING IT TO HIM SOON IT IS POSSIBLE. PT REQUESTED SOME APPLE JUICE AND WATER, PROVISIONS PROVIDED. NO SIGNS OF ACUTE DISTRESS. WILL CONTINUE TO MONITOR.
--- NOTE | 2019-06-03 05:00 | NUR ---
PT IS LAYING IN BED WITH EYES CLOSED AT THIS TIME. PT DENIES NEEDS. NO SIGNS OF ACUTE DISTRESS. WILL CONTINUE TO MONITOR.
[2019-06-03 05:27] LABS: BASOPHILS 0.2 % (0-2); EOSINOPHILS 1.6 % (0-7); HEMATOCRIT 24.4 % (42.0-54.0); HEMOGLOBIN 7.7 g/dL (13.5-17.5); IMMATURE GRANULOCYTES 0.4 % (0-5); LYMPHOCYTES 11.6 % (15-50); MCH 29.5 pg (26.0-34.0); MCHC 31.6 g/dL (31.0-37.0); MCV 93.5 fL (80.0-100.0); MEAN PLATELET VOLUME 9.3 fL (7.4-10.4); NEUTROPHILS 75.2 % (40-80); PLATELET COUNT 178 10x3/uL (130-400); RBC 2.61 10x6/uL (4.20-6.10); RDW 17.8 % (11.5-14.5); WBC 4.9 10x3/uL (4.8-10.8)
[2019-06-03 05:47] LABS: CALC OSMOLALITY 285 mosm/kg (275-300); CALCIUM 7.5 mg/dL (8.5-10.1); CARBON DIOXIDE 28.5 mmol/L (21.0-32.0); CHLORIDE - SERUM 109 mmol/L (98-107); CREATININE - SERUM 0.9 mg/dL (0.6-1.3); GLUCOSE 118 mg/dL (74-106); SODIUM 143 mmol/L (136-145); UREA NITROGEN 12 mg/dL (7-18); eGFR NON AFRICAN AMERICAN 87 mL/min (90-120)
--- NOTE | 2019-06-03 07:10 | NUR ---
REPORT RECEIVED. ASSESSMENT COMPLETE PER FLOW SHEET. VSS. NO NEW CHANGES. WILL CONTINUE TO MONITOR
--- NOTE | 2019-06-03 08:29 | NUR ---
PT GIVEN BREAKFAST TRAY ATE 50%
--- NOTE | 2019-06-03 09:38 | NUR ---
DR MCKEON AT BEDSIDE. GIVEN UDPATE. NEW ORDERS RECEIVED.
--- NOTE | 2019-06-03 10:10 | NUR ---
COMPLETE BB LINEN CHANGE ADM. LARGE LOOSE BM NOTED
--- NOTE | 2019-06-03 10:32 | NUR ---
BLOOD DRAW FROM [facility] AND GIVEN TO MRP CONTROLLER FOR TRANSPORT LAB AND EVAL
--- NOTE | 2019-06-03 11:20 | NUR ---
PT ASSISTED ONTO BEDPAN NO BM NOTED.
--- NOTE | 2019-06-03 11:31 | NUR ---
LYNSEY AND TOSHA GIVEN UPDATE REGAURDING PT CONSULT. STATED OKAY.
--- NOTE | 2019-06-03 13:20 | NUR ---
ATE 50% LUNCH
--- NOTE | 2019-06-03 14:23 | MORECARE ---
CASE MANAGEMENT DISCHARGE SUMMARY PATIENT: DUKE MOORE UNIT: [id number] ADM DATE: 05/27/19 AGE: 78 : 40 SEX: M ROOM/BED: D.2302 AUTHOR: RHYS TANNER PHYSICIAN: REFERRING PHYSICIAN: PEPPER ADEN MD DATE OF SERVICE: 06/03/19 Discharge Plan Patient Name: DUKE MOORE Facility: [facility]:[place] : 1940 Planned Disposition: Court\Law Enforcement Anticipated Discharge Date: Discharge Date: Expected LOS: Initial Reviewer: [id number] Initial Review Date: 05/27/2019 Generated: 06/03/19 3:23 pm DCP- Discharge Planning Updated by [email or web address]: Daylin Blackman on 05/27/19 1:[address] PATIENT RESIDES AT [facility] IN [place] AND WILL RETURN THERE UPON DISCHARGE. HE CURRENTLY HAS A GUARD AT BEDSIDE. CM WILL CONTINUE TO FOLLOW AND ASSIST NEEDED WITH D/C PLANNING. Last DP export: 05/27/19 1:47 pm Patient Name: DUKE MOORE Page [id number] at 1423 All edits/amendments must be made on the electronic document DICTATION DATE: 06/03/191421 ORCHESTRA TEACHER: ZOILA 06/03/191421 RPT#: [id number] DC DATE: STATUS: ADM IN [place] [address] [place] [address] END OF REPORT
--- NOTE | 2019-06-03 14:31 | MORECARE ---
CASE MANAGEMENT DISCHARGE SUMMARY PATIENT: DUKE MOORE UNIT: [id number] ADM DATE: 05/27/19 AGE: 78 : 40 SEX: M ROOM/BED: D.2302 AUTHOR: RHYS TANNER PHYSICIAN: REFERRING PHYSICIAN: PEPPER ADEN MD DATE OF SERVICE: 06/03/19 Discharge Plan Patient Name: DUKE MOORE Facility: [facility]:[place] : 1940 Planned Disposition: Court\Law Enforcement Anticipated Discharge Date: Discharge Date: Expected LOS: Initial Reviewer: [email or web address] Initial Review Date: 05/27/2019 Generated: 06/03/19 3:31 pm Comments DCP- Discharge Planning Updated by [email or web address]: Stephanie Dominguez on 06/03/19 1:[address] Patient Name: DUKE MOORE Admission Status: ER Accout number: [id number] Admission Date: 05-27-2019 : 1940 Admission Diagnosis:METABOLIC ENCEPHALOPATHY Attending: PEPPER ADEN Current LOS: 7 Anticipated DC Date: Planned Disposition: Court\Law Enforcement Primary Insurance: MEDICAID [id number] PENDING Discharge Planning Comments: NURSE NOTIFIED CM THAT THE PATIENT AND HIS SON IS INTERESTED IN HOSPICE. CLEO AT [employer] CALLED AND SHE STATED THAT HE WOULD NEED TO BE MADE COMFORT CARE. WHEN DECISION HAS BEEN MADE THE RN CAN CALL CLEO AT [phone] AND THEN CALL REPORT TO ALEXANDRA RN AT [phone]. CM TO FOLLOW AND ASSIST. Assault Amphibious Vehicle Officer: Stephanie Dominguez DCP- Discharge Planning Updated by [id number]: Daylin Blackman on 05/27/19 1:[address] PATIENT [facility] AND WILL RETURN THERE UPON DISCHARGE. HE CURRENTLY HAS A GUARD AT BEDSIDE. CM WILL CONTINUE TO FOLLOW AND ASSIST NEEDED WITH D/C PLANNING. Last DP export: 06/03/19 1:23 pm Patient Name: DUKE MOORE Page [phone] at 1431 All edits/amendments must be made on the electronic document DICTATION DATE: 06/03/19 1430 ONLINE AFFILIATE MARKETING MANAGER: ZOILA 06/03/19 1430 RPT#: [id number] DC DATE: STATUS: ADM [facility] [address] [facility] [place] [address] END OF REPORT
--- NOTE | 2019-06-03 15:20 | NUR ---
FAMILY AT BEDSIDE GIVEN UDPAETE
--- NOTE | 2019-06-03 17:20 | NUR ---
PT SLEEPING COMFORTABLY VSS NO NEW CHANGES WILL CONTINUE TO MONITOR
--- NOTE | 2019-06-03 19:30 | NUR ---
PT ALERT AND ORIENTED TO PERSON AND PLACE. WILL FOLLOW COMMANDS, BUT HAS MOMENTS OF CONFUSION. SHALLOW REPIRATIONS PRESENT. LUNG SOUNDS CLEAR/DIMINISHED. SPO2 96 ON 4L O2. S1S2 HEARD, PERIPHERAL PULSES PRESENT. GENERALIZED EDEMA PRESENT. BOWEL SOUNDS ACTIVE IN ALL QUADRANTS. SANTOS CATH INTACT, SANTOS CARE PROVIDED AT THIS TIME. PT REPOSITIONED WITH PROMINENCES BRIDGED. VSS, GUARD AT BEDSIDE. CPOC.
--- NOTE | 2019-06-03 20:10 | NUR ---
FRESH WATER PROVIDED. HS MEDS GIVEN, TOLERATED WELL. PT REPOSITIONED FOR COMFORT. VSS, DENIES NEEDS. GUARD AT BEDSIDE. CPOC.
--- NOTE | 2019-06-03 23:30 | NUR ---
NO CHANGES NOTED AT THIS TIME. PT REPOSITIONED WITH PROMINENCES BRIDGED. APPLE JUICE AND JELLO PROVIDED UPON REQUEST. VSS, DENIES FURTHER NEEDS. GUARD AT BEDSIDE. CPOC.
[2019-06-04] VITALS (20 sets, daily range): BP systolic 107–133; BP diastolic 45–97
--- NOTE | 2019-06-04 | NUR ---
PT FINISHED APPLE JUICE AND KARIN, ASKED FOR MORE JUICE, EXPLAINED THAT HE IS NOW NPO FOR HIS BIOPSY TOMORROW, VERBALIZES UNDERSTANDING.
--- NOTE | 2019-06-04 01:30 | NUR ---
PT REPOSITIONED WITH PROMINENCES BRIDGED. VSS, DENIES NEEDS. GUARD AT BEDSIDE. CALL LIGHT WITHIN PT REACH. CPOC.
--- NOTE | 2019-06-04 03:32 | NUR ---
NO CHANGES AT THIS TIME, PT RESTING QUIETLY, AROUSES EASILY. AOX2, SOME CONFUSION PRESENT. PT REPOSITIONED WITH PROMINENCES BRIDGED, PARTIAL LINEN CHANGE PROVIDED. VSS, GUARD AT BEDSIDE. CPOC.
[2019-06-04 05:06] LABS: BASOPHILS 0.1 % (0-2); EOSINOPHILS 1.2 % (0-7); HEMATOCRIT 24.6 % (42.0-54.0); HEMOGLOBIN 7.8 g/dL (13.5-17.5); IMMATURE GRANULOCYTES 0.6 % (0-5); LYMPHOCYTES 10.4 % (15-50); MCH 29.5 pg (26.0-34.0); MCHC 31.7 g/dL (31.0-37.0); MCV 93.2 fL (80.0-100.0); MEAN PLATELET VOLUME 9.8 fL (7.4-10.4); MONOCYTES 11.3 % (2-11); NEUTROPHILS 76.4 % (40-80); PLATELET COUNT 179 10x3/uL (130-400); RBC 2.64 10x6/uL (4.20-6.10); RDW 17.6 % (11.5-14.5)
[2019-06-04 05:12] LABS: APTT 32.6 SECONDS (22.8-39.4)
[2019-06-04 05:21] LABS: WBC 6.8 10x3/uL (4.8-10.8)
[2019-06-04 05:38] LABS: INR 1.36 (0.85-1.17); PROTIME 16.2 SECONDS (11.6-15.0)
--- NOTE | 2019-06-04 06:00 | NUR ---
COMPLETE LINEN CHANGE AND CHG BATH GIVEN. VSS, PROMINENCES BRIDGED. CPOC.
[2019-06-04 06:02] LABS: CALC OSMOLALITY 281 mosm/kg (275-300); CALCIUM 7.4 mg/dL (8.5-10.1); CARBON DIOXIDE 29.8 mmol/L (21.0-32.0); CHLORIDE - SERUM 107 mmol/L (98-107); CREATININE - SERUM 0.8 mg/dL (0.6-1.3); GLUCOSE 109 mg/dL (74-106); SODIUM 141 mmol/L (136-145); UREA NITROGEN 13 mg/dL (7-18); eGFR NON AFRICAN AMERICAN > 90 mL/min (90-120)
--- NOTE | 2019-06-04 07:15 | NUR ---
REPORT RECEIVED. ASSESSMENT COMPLETE PER FLOW SHEET. VSS. NO NEW CHANGES WILL CONTINUE TO MONITOR
--- NOTE | 2019-06-04 08:30 | NUR ---
RECEIVED REPORT FROM DANK SANDOVAL. PT RESTING IN BED AWAKE AND ALERT. VSS NORMAL SINUS RHYTHM. WILL CONTINUE TO MONITOR
--- NOTE | 2019-06-04 09:35 | NUR ---
OBTAINED VERBAL CONCENT FROM PATIENT FOR BONE BIOPSY TODAY.
--- NOTE | 2019-06-04 11:01 | NUR ---
Nutrition follow-up: Pt remains NPO for bone biopsy today Has been NPO x 2 days for procedures PO Intake has been ~50% of meals Labs reviewed Wt: 216# +BM RDN following.
--- NOTE | 2019-06-04 11:30 | NUR ---
ORAL CARE GIVEN. PATIENT AWAKE AND ALERT. VSS.
--- NOTE | 2019-06-04 12:58 | NUR ---
PATIENT TAKEN TO CT FOR BONE BIOPSY
--- NOTE | 2019-06-04 14:08 | NUR ---
PATIENT RETURNED FROM CT BONE BIOPSY AT THIS TIME. DRESSING OVER BIOPSY SITE CLEAN AND DRY. HOOKED UP TO MONITOR. VSS
--- NOTE | 2019-06-04 16:00 | NUR ---
PT VSS. FAMILY MEMBER LEFT.
--- NOTE | 2019-06-04 17:00 | NUR ---
PT HAD LOOSE BM. NURSE CLEANED AND CHANGED ALL LINENS
--- NOTE | 2019-06-04 17:12 | NUR ---
DINNER TRAY SERVED
--- NOTE | 2019-06-04 19:00 | NUR ---
PT ALERT AND ORIENTED X2, MOMENTS OF CONFUSION PRESENT. PT REPOSITIONED WITH PROMINENCES BRIDGED. ORAL CARE PROVIDED WITH MINIMAL ASSISTANCE. SANTOS CARE COMPLETED. VSS, APPLE JUICE PROVIDED UPON REQUEST. DENIES FURTHER NEEDS AT THIS TIME. GUARD AT BEDSIDE, CALL LIGHT WITHIN REACH. CPOC.
[2019-06-04 19:10] LABS: SPE - A/G RATIO 0.4 (0.7-1.7); SPE - ALBUMIN 1.9 g/dL (2.9-4.4); SPE - ALPHA-1 GLOBULIN 0.3 g/dL (0.0-0.4); SPE - ALPHA-2 GLOBULIN 0.9 g/dL (0.4-1.0); SPE - BETA GLOBULIN 0.7 g/dL (0.7-1.3); SPE - GAMMA GLOBULIN 2.5 g/dL (0.4-1.8); SPE - M-SPIKE 2.2 g/dL (Not Observed); SPE - TOTAL PROTEIN 6.2 g/dL (6.0-8.5)
--- NOTE | 2019-06-04 21:51 | NUR ---
HS MEDS GIVEN, PT TOLERATED WELL. PT REPOSITIONED WITH PROMINENCES BRIDGED. HS SNACK PROVIDED UPON REQUEST, PT ATE 100%. VSS, DENIES FURTHER NEEDS. GUARD AT BEDSIDE. CPOC.
--- NOTE | 2019-06-04 23:00 | NUR ---
NO CHANGES NOTED AT THIS TIME. LINEN CHANGE PROVIDED AND PT REPOSITIONED WITH PROMINENCES BRIDGED. FRESH WATER TO BEDSIDE PER REQUEST. VSS, NO S/S OF ACUTE DISTRESS NOTED. DENIES NEEDS. GUARD AT BEDSIDE, CPOC.
--- NOTE | 2019-06-05 01:09 | NUR ---
PT RESTING QUIELTY, VSS, NO S/S OF ACUTE DISTRESS. REPOSITIONED WITH PROMINENCES BRIDGED. CPOC.
[2019-06-05 03:00] VITALS: BP 110/50
--- NOTE | 2019-06-05 03:00 | NUR ---
NO CHANGES AT THIS TIME, PT REPOSITIONED WITH PROMINENCES BRIDGED. RESTING COMFORTABLY WITH VSS, CPOC.
[2019-06-05 04:06] LABS: BASOPHILS 0.2 % (0-2); EOSINOPHILS 0.9 % (0-7); HEMATOCRIT 24.5 % (42.0-54.0); HEMOGLOBIN 7.8 g/dL (13.5-17.5); IMMATURE GRANULOCYTES 0.7 % (0-5); LYMPHOCYTES 13.5 % (15-50); MCH 29.4 pg (26.0-34.0); MCHC 31.8 g/dL (31.0-37.0); MCV 92.5 fL (80.0-100.0); MEAN PLATELET VOLUME 9.4 fL (7.4-10.4); MONOCYTES 13.3 % (2-11); NEUTROPHILS 71.4 % (40-80); PLATELET COUNT 174 10x3/uL (130-400); RBC 2.65 10x6/uL (4.20-6.10); RDW 17.7 % (11.5-14.5); WBC 5.8 10x3/uL (4.8-10.8)
[2019-06-05 04:30] LABS: ALBUMIN 1.5 g/dL (3.4-5.0); ALKALINE PHOSPHATASE 153 U/L (46-116); ALT (SGPT) 17 U/L (10-68); BILIRUBIN - TOTAL 0.34 mg/dL (0.2-1.3); CALC OSMOLALITY 279 mosm/kg (275-300); CALCIUM 7.2 mg/dL (8.5-10.1); CARBON DIOXIDE 37.1 mmol/L (21.0-32.0); CHLORIDE - SERUM 104 mmol/L (98-107); CREATININE - SERUM 0.8 mg/dL (0.6-1.3); GLUCOSE 109 mg/dL (74-106); PRO BNP 3757 pg/mL (0-450); PROTEIN - SERUM 6.9 g/dL (6.4-8.2); SODIUM 140 mmol/L (136-145); UREA NITROGEN 12 mg/dL (7-18); eGFR NON AFRICAN AMERICAN > 90 mL/min (90-120)
--- NOTE | 2019-06-05 06:00 | NUR ---
PT REPOSITIONED WITH PROMINENCES BRIDGED, LINEN CHANGE PROVIDED. VSS.
[2019-06-05 07:00] VITALS: BP 111/56
--- NOTE | 2019-06-05 07:00 | NUR ---
PT RESTING IN BED WITH VSS. NO COMPLAINTS. WILL CONTINUE TO MONITOR.
--- NOTE | 2019-06-05 08:00 | NUR ---
PATIENT HAD INCONTINENT BM. NURSE CLEANED AND CHANGED. VSS.
--- NOTE | 2019-06-05 08:48 | NUR ---
DR. MCKEON CAME TO TALK TO PATIENT ABOUT POSSIBLE NEED FOR CHEMOTHERAPY TREATMENT IF BIOPSY COMES BACK POSITIVE CANCER. PATIENT WANTS TO DISCUSS WITH FAMILY BEFORE MAKING A DECISION. FAMILY IS SUPPOSEDLY COMING TODAY BETWEEN 12 AND 4.
--- NOTE | 2019-06-05 09:19 | NUR ---
CLAMPED CATHETER FOR BLADDER TRAINING PER DR. MCKEON ORDERS.
--- NOTE | 2019-06-05 10:10 | NUR ---
OBTAINED HISTORY FROM PATIENTS SON.
[2019-06-05 11:00] VITALS: BP 121/84
--- NOTE | 2019-06-05 14:07 | NUR ---
FAMILY HAS COME TO SEE PATIENT. DISCUSSED WITH THEM THEIR THOUGHTS ON CHEMOTHERAPY. CALLED DR. MCKEON SO SHE COULD SPEAK TO FAMILY AND NOW SHE IS ON PHONE WITH THE PATIENTS SON, JUDITH.
--- NOTE | 2019-06-05 14:40 | NUR ---
JUDITH SON AND PT WITH FAMILY AT BEDSIDE IN [facility] PT WANTING HOSPICE/COMFORT MEASURES DOES NOT WANT TO PROCEED WITH ANY FURTHER TREATMENT AT THIS TIME. PHYSICIANS GIVEN UDPATE. DNR STATUS OBTAINED. WILL ADM COMFORT MEASURES
--- NOTE | 2019-06-05 14:53 | MORECARE ---
CASE MANAGEMENT DISCHARGE SUMMARY PATIENT: DUKE MOORE UNIT: [id number] ADM DATE: 05/27/19 AGE: 78 : 40 SEX: M ROOM/BED: D.2302 AUTHOR: RHYS TANNER PHYSICIAN: REFERRING PHYSICIAN: PEPPER ADEN MD DATE OF SERVICE: 06/05/19 Discharge Plan Patient Name: DUKE MOORE Facility: [facility]:[place] : 1940 Planned Disposition: Court\Law Enforcement Anticipated Discharge Date: Discharge Date: Expected LOS: Initial Reviewer: [email or web address] Initial Review Date: 05/27/2019 Generated: 06/05/19 3:53 pm Comments DCP- Discharge Planning Updated by [id number]: Stephanie Dominguez on 06/05/19 1:[address] Patient Name: DUKE MOORE Admission Status: ER Accout number: [id number] Admission Date: 05-27-2019 : 1940 Admission Diagnosis:METABOLIC ENCEPHALOPATHY Attending: PEPPER ADEN Current LOS: 9 Anticipated DC Date: Planned Disposition: Court\Law Enforcement Primary Insurance: MEDICAID JAIL PENDING Discharge Planning Comments: CM SPOKE WITH NORMA IN ICU AND PATIENT AND FAMILY WANTS COMFORT CARE. I CALLED CLEO AT [facility] TO LET HER KNOW PATIENT WILL BE DC'D FROM HERE BACK TO THEM TOMORROW. NURSE TO CALL REPORT TO OR [phone]. GO AHEAD AND CALL TODAY AND LET THEM KNOW THE PLAN. THANK YOU. DCP- Discharge Planning Updated by [id number]: Stephanie Dominguez on 06/03/19 1:[address] Patient Name: DUKE MOORE Admission Status: ER Accout number: [id number] Admission Date: 05-27-2019 : 1940 Admission Diagnosis:METABOLIC ENCEPHALOPATHY Attending: PEPPER ADEN Current LOS: 7 Anticipated DC Date: Planned Disposition: Court\Law Enforcement Primary Insurance: MEDICAID JAIL PENDING Discharge Planning Comments: NURSE NOTIFIED CM THAT THE PATIENT AND HIS SON IS INTERESTED IN HOSPICE. CLEO AT [facility] CALLED AND SHE STATED THAT HE WOULD NEED TO BE MADE COMFORT CARE. WHEN DECISION HAS BEEN MADE THE RN CAN CALL CLEO AT [phone] AND THEN CALL REPORT TO [facility] RN AT [phone]. CM TO FOLLOW AND ASSIST. Air Valve Mechanic: Stephanie Dominguez DCP- Discharge Planning Updated by [id number]: Daylin Blackman on 05/27/19 1:[address] PATIENT RESIDES AT [facility] IN [place] AND WILL RETURN THERE UPON DISCHARGE. HE CURRENTLY HAS A GUARD AT BEDSIDE. CM WILL CONTINUE TO FOLLOW AND ASSIST NEEDED WITH D/C PLANNING. Last DP export: 06/03/19 1:31 pm Patient Name: DUKE MOORE Page [phone] at 1453 All edits/amendments must be made on the electronic document DICTATION DATE: 06/05/191451 TREAD BOOKER: ZOILA 06/05/191451 RPT#: [id number] DC DATE: STATUS: ADM IN [facility] [address] [place] [address] END OF REPORT
--- NOTE | 2019-06-05 15:00 | NUR ---
SPOKE TO FEED HOUSE SUPERVISOR ABOUT PLAN TO DISCHARGE PATIENT BACK TO [facility] TOMORROW MORNING. STATED SHE WOULD CALL AND TALK TO THEIR FEED HOUSE SUPERVISOR.
--- NOTE | 2019-06-05 17:40 | NUR ---
PT RECIEVED FROM ICU. ALERT AND ORIENTED. DRESSING NOTED TO MID BACK BLOODY BUT INTACT. GENERALIZED BRUISING NOTED TO TORSO AND LOWER EXTREMITIES. GUARD AT BEDSIDE. IV NOTED TO RIGHT FOREARM. SALINE LOCKED AND PATENT CDI. 3L O2 NC. PT CAME WITH NC TUCKED UNDER CHIN. O2 SAT 91%. WHEN NC WAS PUT BACK ON O2 SAT INCREASED TO 94%. BARELY BLANCHABLE REDNESS NOTED TO COCCYX. PT STATED HE IS STILL HURTING. WILL ADDRESS PAIN. OTHERWISE NO DISTRESS NOTED. CALL LIGHT WITHIN LREACH. BED AT LOWEST POSITION. BEDRAILS UP X3. WILL CONTINUE TO MONITOR.
--- NOTE | 2019-06-05 19:14 | NUR ---
PT IN BED. GUARD AT BEDSIDE. PT DENIES NEEDS AT THIS TIME.
[2019-06-05 20:56] VITALS: BP 125/62
[2019-06-06 01:20] VITALS: BP 120/80
[2019-06-06 04:00] VITALS: BP 131/62
[2019-06-06 07:29] VITALS: BP 134/52
--- NOTE | 2019-06-06 08:15 | NUR ---
PT RESTING IN BED GUARD AT BEDSIDE CALL LIGHT IN REACH WILL MONITER
--- NOTE | 2019-06-06 08:36 | MORECARE ---
CASE MANAGEMENT DISCHARGE SUMMARY PATIENT: DUKE MOORE UNIT: [id number] ADM DATE: 05/27/19 AGE: 78 : 40 SEX: M ROOM/BED: D.1204 AUTHOR: RHYS TANNER PHYSICIAN: REFERRING PHYSICIAN: PEPPER ADEN MD DATE OF SERVICE: 06/06/19 Discharge Plan Patient Name: DUKE MOORE Facility: [facility]:[place] : 1940 Planned Disposition: Court\Law Enforcement Anticipated Discharge Date: Discharge Date: Expected LOS: Initial Reviewer: [email or web address] Initial Review Date: 05/27/2019 Generated: 06/06/19 9:36 am Comments DCP- Discharge Planning Updated by [id number]: Stephanie Dominguez on 06/06/19 7:[address] Patient Name: DUKE MOORE Admission Status: ER Accout number: [id number] Admission Date: 05-27-2019 : 1940 Admission Diagnosis:METABOLIC ENCEPHALOPATHY Attending: PEPPER ADEN Current LOS: 10 Anticipated DC Date: Planned Disposition: Court\Law Enforcement Primary Insurance: MEDICAID NURSING HOME PENDING Discharge Planning Comments: I SPOKE WITH CLEO AT [facility] AND SHE STATES PATIENT NEEDS TO BE A DNR BEFORE HE RETURNS TO [facility]. I WILL NOTIFY THE DOCTOR. CM TO FOLLOW. Clarity Developer: Stephanie Dominguez DCP- Discharge Planning Updated by [id number]: Stephanie Dominguez on 06/05/19 1:[address] Patient Name: DUKE MOORE Admission Status: ER Accout number: [id number] Admission Date: 05-27-2019 : 1940 Admission Diagnosis:METABOLIC ENCEPHALOPATHY Attending: PEPPER ADEN Current LOS: 9 Anticipated DC Date: Planned Disposition: Court\Law Enforcement Primary Insurance: MEDICAID NURSING HOME PENDING Discharge Planning Comments: CM SPOKE WITH NORMA IN ICU AND PATIENT AND FAMILY WANTS COMFORT CARE. I CALLED CLEO AT [facility] TO LET HER KNOW PATIENT WILL BE DC'D FROM HERE BACK TO THEM TOMORROW. NURSE TO CALL REPORT TO [facility] [phone]. GO AHEAD AND CALL TODAY AND LET THEM KNOW THE PLAN. THANK YOU. DCP- Discharge Planning Updated by [id number]: Stephanie Dominguez on 06/03/19 1:[address] Patient Name: DUKE MOORE Admission Status: ER Accout number: [id number] Admission Date: 05-27-2019 : 1940 Admission Diagnosis:METABOLIC ENCEPHALOPATHY Attending: PEPPER ADEN Current LOS: 7 Anticipated DC Date: Planned Disposition: Court\Law Enforcement Primary Insurance: MEDICAID NURSING HOME PENDING Discharge Planning Comments: NURSE NOTIFIED CM THAT THE PATIENT AND HIS SON IS INTERESTED IN HOSPICE. CLEO AT [facility] CALLED AND SHE STATED THAT HE WOULD NEED TO BE MADE COMFORT CARE. WHEN DECISION HAS BEEN MADE THE RN CAN CALL CLEO AT [phone] AND THEN CALL REPORT TO ALEXANDRA RN AT [phone]. CM TO FOLLOW AND ASSIST. Clarity Developer: Stephanie Dominguez DCP- Discharge Planning Updated by [id number]: Daylin Blackman on 05/27/19 1:[address] PATIENT RESIDES AT [facility] IN [place] AND WILL RETURN THERE UPON DISCHARGE. HE CURRENTLY HAS A GUARD AT BEDSIDE. CM WILL CONTINUE TO FOLLOW AND ASSIST NEEDED WITH D/C PLANNING. Last DP export: 06/05/19 1:53 p Patient Name: DUKE MOORE Page [phone] at 0836 All edits/amendments must be made on the electronic document DICTATION DATE: 06/06/19834 MINERAL INDUSTRY TEACHER: ZOILA 06/06/19834 RPT#: [id number] DC DATE: STATUS: ADM IN [place] [address] [place] [address] END OF REPORT
--- NOTE | 2019-06-06 08:58 | MORECARE ---
CASE MANAGEMENT DISCHARGE SUMMARY PATIENT: DUKE MOORE UNIT: [id number] ADM DATE: 05/27/19 AGE: 78 : 40 SEX: M ROOM/BED: D.1204 AUTHOR: RHYS TANNER PHYSICIAN: REFERRING PHYSICIAN: PEPPER ADEN MD DATE OF SERVICE: 06/06/19 Discharge Plan Patient Name: DUKE MOORE Facility: [facility]:[place] : 1940 Planned Disposition: Court\Law Enforcement Anticipated Discharge Date: Discharge Date: Expected LOS: Initial Reviewer: [email or web address] Initial Review Date: 05/27/2019 Generated: 06/06/19 9:57 am Comments DCP- Discharge Planning Updated by [id number]: Stephanie Dominguez on 06/06/19 7:[address] Patient Name: DUKE MOORE Admission Status: ER Accout number: [id number] Admission Date: 05-27-2019 : 1940 Admission Diagnosis:METABOLIC ENCEPHALOPATHY Attending: PEPPER ADEN Current LOS: 10 Anticipated DC Date: Planned Disposition: Court\Law Enforcement Primary Insurance: MEDICAID INTERMEDIATE PENDING Discharge Planning Comments: I SPOKE WITH CLEO AT [facility] AND SHE STATES PATIENT NEEDS TO BE A DNR BEFORE HE RETURNS TO [facility]. I WILL NOTIFY THE DOCTOR. CM TO FOLLOW. Grievance And Appeals Coordinator: Stephanie Dominguez DCP- Discharge Planning Updated by [id number]: Stephanie Dominguez on 06/05/19 1:[address] Patient Name: DUKE MOORE Admission Status: ER Accout number: [id number] Admission Date: 05-27-2019 : 1940 Admission Diagnosis:METABOLIC ENCEPHALOPATHY Attending: PEPPER ADEN Current LOS: 9 Anticipated DC Date: Planned Disposition: Court\Law Enforcement Primary Insurance: MEDICAID INTERMEDIATE PENDING Discharge Planning Comments: CM SPOKE WITH NORMA IN ICU AND PATIENT AND FAMILY WANTS COMFORT CARE. I CALLED CLEO AT [facility] TO LET HER KNOW PATIENT WILL BE DC'D FROM HERE BACK TO THEM TOMORROW. NURSE TO CALL REPORT TO [facility] [phone]. GO AHEAD AND CALL TODAY AND LET THEM KNOW THE PLAN. THANK YOU. DCP- Discharge Planning Updated by [id number]: Stephanie Dominguez on 06/03/19 1:[address] Patient Name: DUKE MOORE Admission Status: ER Accout number: [id number] Admission Date: 05-27-2019 : 1940 Admission Diagnosis:METABOLIC ENCEPHALOPATHY Attending: PEPPER ADEN Current LOS: 7 Anticipated DC Date: Planned Disposition: Court\Law Enforcement Primary Insurance: MEDICAID INTERMEDIATE PENDING Discharge Planning Comments: NURSE NOTIFIED CM THAT THE PATIENT AND HIS SON IS INTERESTED IN HOSPICE. CLEO AT [facility] CALLED AND SHE STATED THAT HE WOULD NEED TO BE MADE COMFORT CARE. WHEN DECISION HAS BEEN MADE THE RN CAN CALL CLEO AT [phone] AND THEN CALL REPORT TO ALEXANDRA RN AT [phone]. CM TO FOLLOW AND ASSIST. Grievance And Appeals Coordinator: Stephanie Dominguez DCP- Discharge Planning Updated by [id number]: Daylin Blackman on 05/27/19 1:[address] PATIENT RESIDES AT [facility] IN [place] AND WILL RETURN THERE UPON DISCHARGE. HE CURRENTLY HAS A GUARD AT BEDSIDE. CM WILL CONTINUE TO FOLLOW AND ASSIST NEEDED WITH D/C PLANNING. Last DP export: 06/06/19 7:36 a Patient Name: DUKE MOORE Page [phone] at 0858 All edits/amendments must be made on the electronic document DICTATION DATE: 06/06/19856 ARCHITECTURE FACULTY MEMBER: ZOILA 06/06/1957 RPT#: [id number] DC DATE: STATUS: ADM IN [place] [address] [place] [address] END OF REPORT
--- NOTE | 2019-06-06 09:00 | NUR ---
CRUZ FROM WOUND CARE IN THE ROOM TO CHANGE DRESSINGS TO LEFT AND RIGHT BUTTOCKS PT TOLERATED WELL
[2019-06-06 11:37] VITALS: BP 111/54
[2019-06-06] MEDS ORDERED: CARDIZEM60 MG PO (14:04)
[2019-06-06] MEDS ORDERED: AMIODARONE HCL200 MG PO (14:04)
--- NOTE | 2019-06-06 15:00 | NUR ---
I have reviewed this patient and I concur with the Shift Assessment completed by the Licensed Practical Nurse today this shift.
[2019-06-06 15:55] VITALS: BP 100/51
--- NOTE | 2019-06-06 18:26 | NUR ---
PT RESTING IN BED WITH EYES OPEN CALL LIGHT IN REACH GUARD AT BEDSIDE CALL. PT WAITING TO DISCHARGE BACK TO [facility] VIA AMBULANCE AT 8 PM.
--- NOTE | 2019-06-06 19:04 | NUR ---
PT IN BED. GUARD AT BEDSIDE. PT DENIES NEEDS AT THIS TIME.
[2019-06-06 19:32] VITALS: BP 109/52
--- NOTE | 2019-06-06 20:24 | NUR ---
AMBULANCE HERE FOR TRANSPORT. PAPERWORK GIVEN TO THEM. SALINE LOCK WAS LEFT IN. HEART MONITOR WAS TURNED IN. DISCHARGED BACK TO [facility] UN[facility] VIA AMBULANCE.
--- NOTE | 2019-06-09 08:25 | MORECARE ---
CASE MANAGEMENT DISCHARGE SUMMARY PATIENT: DUKE MOORE UNIT: [id number] ADM DATE: 05/27/19 AGE: 78 : 40 SEX: M ROOM/BED: D.1204 AUTHOR: FLORESDOC PHYSICIAN: REFERRING PHYSICIAN: PEPPER ADEN MD DATE OF SERVICE: 06/09/19 Discharge Plan Patient Name: DUKE MOORE Facility: [facility]:[place] : 1940 Planned Disposition: Court\Law Enforcement Anticipated Discharge Date: Discharge Date: 06/06/2019 Expected LOS: Initial Reviewer: [id number] Initial Review Date: 05/27/2019 Generated: 06/09/19 9:25 am Comments DCP- Discharge Planning Updated by [email or web address]: Stephanie Dominguez on 06/06/19 7:[address] Patient Name: DUKE MOORE Admission Status: ER Accout number: [id number] Admission Date: 05-27-2019 : 1940 Admission Diagnosis:METABOLIC ENCEPHALOPATHY Attending: PEPPER ADEN Current LOS: 10 Anticipated DC Date: Planned Disposition: Court\Law Enforcement Primary Insurance: MEDICAID FDC PENDING Discharge Planning Comments: I SPOKE WITH CLEO AT [facility] AND SHE STATES PATIENT NEEDS TO BE A DNR BEFORE HE RETURNS TO [facility]. I WILL NOTIFY THE DOCTOR. CM TO FOLLOW. Community Music Therapist: Stephanie Dominguez DCP- Discharge Planning Updated by [email or web address]: Stephanie Dominguez on 06/05/19 1:[address] Patient Name: DUKE MOORE Admission Status: ER Accout number: [id number] Admission Date: 05-27-2019 : 1940 Admission Diagnosis:METABOLIC ENCEPHALOPATHY Attending: PEPPER ADEN Current LOS: 9 Anticipated DC Date: Planned Disposition: Court\Law Enforcement Primary Insurance: MEDICAID FDC PENDING Discharge Planning Comments: CM SPOKE WITH NORMA IN ICU AND PATIENT AND FAMILY WANTS COMFORT CARE. I CALLED CLEO AT [facility] TO LET HER KNOW PATIENT WILL BE DC'D FROM HERE BACK TO THEM TOMORROW. NURSE TO CALL REPORT TO [facility] [phone]. GO AHEAD AND CALL TODAY AND LET THEM KNOW THE PLAN. THANK YOU. DCP- Discharge Planning Updated by [id number]: Stephanie Dominguez on 06/03/19 1:[address] Patient Name: DUKE MOORE Admission Status: ER Accout number: [id number] Admission Date: 05-27-2019 : 1940 Admission Diagnosis:METABOLIC ENCEPHALOPATHY Attending: PEPPER ADEN Current LOS: 7 Anticipated DC Date: Planned Disposition: Court\Law Enforcement Primary Insurance: MEDICAID FDC PENDING Discharge Planning Comments: NURSE NOTIFIED CM THAT THE PATIENT AND HIS SON IS INTERESTED IN HOSPICE. CLEO AT [facility] CALLED AND SHE STATED THAT HE WOULD NEED TO BE MADE COMFORT CARE. WHEN DECISION HAS BEEN MADE THE RN CAN CALL CLEO AT [phone] AND THEN CALL REPORT TO ALEXANDRA RN AT [phone]. CM TO FOLLOW AND ASSIST. Community Music Therapist: Stephanie Dominguez DCP- Discharge Planning Updated by [email or web address]: Daylin Blackman on 05/27/19 1:[address] PAT[facility] [place] AND WILL RETURN THERE UPON DISCHARGE. HE CURRENTLY HAS A GUARD AT BEDSIDE. CM WILL CONTINUE TO FOLLOW AND ASSIST NEEDED WITH D/C PLANNING. Last DP export: 06/06/19 7:58 a Patient Name: DUKE MOORE Page [phone] at 0825 All edits/amendments must be made on the electronic document DICTATION DATE: 06/09/19823 SPECIAL EDUCATION EDUCATIONAL ASSISTANT: ZOILA 06/09/19823 RPT#: [id number] DC DATE:06/06/19 STATUS: DIS IN [place] [address] [place] [address] END OF REPORT
--- NOTE | 2019-06-09 18:38 | EC ---
PATIENT:DUKE MOORE DATE OF SERVICE: 05/27/19 SEX: M MEDICAL RECORD: [id number] DATE OF : [birth year] LOCATION:D.M3 D.120 AGE OF PATIENT: 78 ADMISSION DATE: 05/27/19 REFERRING PHYSICIAN: INTERPRETING PHYSICIAN: JONNATHAN LEE MD ECHOCARDIOGRAM REPORT ECHO CHARGES 4 ECHO COMPLETE Date: 05/28/19 CLINICAL DIAGNOSIS: A-FIB WITH RVR ECHOCARDIOGRAPHIC MEASUREMENTS (adult normal given) AC root (d.<3.7cm) 3.5 cm LV Septum d (<1.2 cm> 1.2 cm Valve Excursion 1.7 cm LV Septum (systole) 1.8 cm Left Atria (s.<4.0cm> 3.4 cm LVPW d(<1.2cm) 1.3 cm RV (d.<2.3cm) 2.8 cm LVPW (sytole) 1.9 cm LV diastole(<5.6CM) 5.3 cm MV E-F(>70mm/sec) cm LV systole 3.4 cm LVOT Diameter 2.0 cm MV exc.(>10mm) cm Est.ejection fraction (50-75%) % DOPPLER: LVIT cm/sec A cm/sec E 111 cm/sec LA cm/sec RVSP 49.4 mmHg LVOT 94.0 cm/sec AOP1/2T m/s Asc. Ao 154 cm/sec RVOT 81.0 cm/sec RA cm/sec PA 90.0 cm/sec AV Gradient Peak 9.5 mmHg AV Mean 5.1 mmHg AV Area 1.9 cm MV Gradient Peak 5.6 mmHg MV Mean 1.8 mmHg MV Area cm COMMENTS: Miller Apprentice: 1 ESTRELLA MARX Cosmetic Sales Advisor: 2 Dr. Mast TAPE# PACS Pericardial Effusion N DATE OF SERVICE: 05/28/2019 FINDINGS: 1. Left ventricular chamber size is within normal limits. Left ventricular systolic function is normal. Overall ejection fraction is estimated at 55%. 2. Left atrium is normal at 3.4 cm. Right atrium and right ventricular chamber sizes are mildly dilated. 3. Valvular structures have normal structure and motion. 4. Doppler interrogation reveals lmbg-gn-uovymmpo mitral regurgitation and severe tricuspid regurgitation. No other valvular insufficiency or stenosis. ECHOCARDIOGRAM REPORT [id number] DUKE MOORE Pulmonary systolic pressure is elevated, estimated at 50 mmHg. 5. No evidence of pericardial effusion or left ventricular thrombus. TRANSINT:[id number] Voice Confirmation ID: [id number] DOCUMENT ID: [id number] JONNATHAN LEE MD at 1838 CC: [id number] DICTATION DATE: 05/28/191734 DRAFTER APPRENTICE: 05/28/191916 DIS IN 06/06/19 [address] [place] [id number]
== END 2019-06-06 20:26 | DRG 987 ==
LOC: D.ER 22:03 → D.ICU 05-27 01:16 → D.M2 05-28 16:13 → D.ICU 05-28 22:49 → D.M3 06-05 17:22
PROVIDERS: Family Medicine; General Practice; Internal Medicine Hematology & Oncology; Specialist; ADMIT Internal Medicine Nephrology; ATTEND Internal Medicine Nephrology
PROC: 05HY33Z Insertion of Infusion Device into Upper Vein, Percutaneous Approach (ICD-10-PCS; principal; 2019-05-27)
PROC: 0DJD8ZZ Inspection of Lower Intestinal Tract, Via Natural or Artificial Opening Endoscopic (ICD-10-PCS; 2019-06-02)
PROC: 0QB23ZX Excision of Right Pelvic Bone, Percutaneous Approach, Diagnostic (ICD-10-PCS; 2019-06-04)
DX: C79.31 Secondary malignant neoplasm of brain (principal); G93.41 Metabolic encephalopathy; R40.2223 Coma scale, best verbal response, incomprehensible words, at hospital admission; K92.2 Gastrointestinal hemorrhage, unspecified; C78.00 Secondary malignant neoplasm of unspecified lung; C79.51 Secondary malignant neoplasm of bone; N39.0 Urinary tract infection, site not specified; N17.9 Acute kidney failure, unspecified; E87.0 Hyperosmolality and hypernatremia; K92.1 Melena; C61 Malignant neoplasm of prostate; R31.0 Gross hematuria; E87.6 Hypokalemia; D64.9 Anemia, unspecified; N48.1 Balanitis; I25.10 Atherosclerotic heart disease of native coronary artery without angina pectoris; Z98.61 Coronary angioplasty status; I10 Essential (primary) hypertension; Z95.1 Presence of aortocoronary bypass graft; K75.81 Nonalcoholic steatohepatitis (NASH); J44.9 Chronic obstructive pulmonary disease, unspecified; E11.8 Type 2 diabetes mellitus with unspecified complications; I73.9 Peripheral vascular disease, unspecified; R40.2353 Coma scale, best motor response, localizes pain, at hospital admission; R40.2143 Coma scale, eyes open, spontaneous, at hospital admission; W19.XXXA Unspecified fall, initial encounter; Y93.9 Activity, unspecified; Y92.9 Unspecified place or not applicable; Z85.46 Personal history of malignant neoplasm of prostate; R60.1 Generalized edema; I95.9 Hypotension, unspecified